=== PATIENT | female | born 1970 | race African-American/Black ===

== ENCOUNTER 2017-09-13 04:38 | Emergency (ER) | payer OTHER ==
[2017-09-13] MEDS ORDERED: MECLIZINE HCL 25 MG TABLET (FP) PO ONE (04:53)
[2017-09-13 04:55] VITALS: BP 119/84; PULSE 79; TEMP 99.3; BMI 25.9
--- NOTE | 2017-09-13 04:56 | PDOC ---
History of Present Illness - General Chief Complaint: Lightheaded Stated Complaint: WOKE UP WITH DIZZYNESS - History of Present Illness Initial Comments: 09/13/17 05:10 dizziness x several hours Timing/Duration: 1-3 hours Severity: moderate Modifying Factors: improves with: movement, rest Associated Symptoms: denies: fever/chills, headaches Past History - Past Medical History Allergies/Adverse Reactions: Allergies Allergy/AdvReac Type Severity Reaction Status Date / Time gluten Allergy Intermediate Verified 09/13/17 04:40 Home Medications: Ambulatory Orders Omeprazole 40 mg PO DAILY 08/21/17 Meclizine HCl [Antivert -] 25 mg PO TID PRN #14 tablet 09/13/17 Comment:: 09/13/17 05:11 denies pmh Review of Systems - Review of Systems All Other Systems: Reviewed and Negative *Physical Exam - Physical Exam General Appearance: Yes: Nourished, Appropriately Dressed HEENT: positive: EOMI, RO, Normal ENT Inspection. negative: TM Bulging, TM Dull, Lesions Neck: negative: Lymphadenopathy (R), Lymphadenopathy (L) Respiratory/Chest: positive: Lungs Clear Cardiovascular: positive: Regular Rhythm Musculoskeletal: positive: Normal Inspection Extremity: positive: Normal Capillary Refill Neurologic: positive: mgmt specialist II-XII NML intact, Fully Oriented, Normal Response, Motor Strength 5/5, Other (nl gait). negative: Abnormal Cranial NS, Facial Droop, Sensory Deficit Medical Decision Making - Medical Decision Making 09/13/17 05:12 vertigo c/w neuronitis meclizine neurology fu *DC/Admit/Observation/Transfer Diagnosis at time of Disposition: Vertigo - Discharge Dispostion Disposition: HOME Condition at time of disposition: Good - Prescriptions Prescriptions: Meclizine HCl [Antivert -] 25 mg PO TID PRN #14 tablet PRN Reason: dizziness - Referrals Referrals: Sulaiman Mccord MD [Staff Physician] - Bertin Jung MD [Staff Physician] - - Patient Instructions Printed Discharge Instructions: DI for Vertigo - Post Discharge Activity
== END 2017-09-13 05:18 | disposition home or self-care (01) ==
LOC: FER 04:38
DX: R42 Dizziness and giddiness (principal)
CPT/HCPCS: 99282-25

== ENCOUNTER 2022-07-15 14:25 | Emergency (ER) | payer OTHER ==
[2022-07-15] MEDS ORDERED: DIPHTH,PERTUSS(ACELL),TET 0.5 ML DISP.SYRIN IM ONE ×2 (14:34→14:51)
[2022-07-15] MEDS ORDERED: AMOX TR/POT CLAV 875MG/125MG TABLETS (FP) PO ONE (14:34)
[2022-07-15 14:50] VITALS: BP 148/80; PULSE 77; RESP 20; TEMP 98.4; BMI 27.0
[2022-07-15] MEDS ORDERED: AMOX TR/POT CLAV 875MG/125MG TABLETS (FP) ONE (14:51)
== END 2022-07-15 15:04 | disposition home or self-care (01) ==
LOC: FER 14:25
PROC: 3E0234Z Introduction of Serum, Toxoid and Vaccine into Muscle, Percutaneous Approach (ICD-10-PCS; principal; 2022-07-15)
DX: S81.801A Unspecified open wound, right lower leg, initial encounter (principal); W54.0XXA Bitten by dog, initial encounter
CPT/HCPCS: 90471; 90715; 99284-25

== ENCOUNTER 2024-02-13 09:50 | Emergency (ER) | payer OTHER ==
[2024-02-13 10:00] VITALS: BP 139/91; PULSE 86; RESP 18; TEMP 98.6; BMI 28.3
[2024-02-13] MEDS ORDERED: METOCLOPRAMIDE HCL INJECTION 10 MG/2 ML VIAL IVPB ONE (10:21)
[2024-02-13] MEDS ORDERED: METOCLOPRAMIDE HCL INJECTION 10 MG/2 ML VIAL ONE (10:28)
[2024-02-13 11:07] LABS: HEMATOCRIT 37.7 % (32.4-45.2); HEMOGLOBIN 12.2 G/dL (10.7-15.3); MCH 26.2 pg (25.7-33.7); MCHC 32.4 g/dl (32.0-36.0); MEAN CELL VOLUME 80.8 fl (80-96); MEAN PLT VOLUME 8.9 fl (7.5-11.1); PLATELET COUNT 269.9 10^3/uL (134-434); RBC 4.66 10^6/uL (3.60-5.2); RDW 14.8 % (11.6-15.6); WHITE BLOOD COUNT 7.2 10^3/uL (4.0-10.8)
[2024-02-13 11:15] LABS: ALBUMIN 4.3 g/dl (3.4-5.0); BILIRUBIN,TOTAL 0.3 mg/dl (0.2-1); CALCIUM 9.2 mg/dl (8.5-10.1); CREATININE 0.7 mg/dl (0.6-1.3); MAGNESIUM 2.1 mg/dL (1.8-2.4); POTASSIUM 4.3 mmol/L (3.5-5.1); TOT PROT 7.6 g/dl (6.4-8.2)
[2024-02-13 11:21] LABS: PLATELET ESTIMATE ADEQUATE
== END 2024-02-13 13:00 | disposition home or self-care (01) ==
LOC: FER 09:50
DX: E86.0 Dehydration (principal); R42 Dizziness and giddiness
CPT/HCPCS: 36415; 80053; 83036; 83735; 84439; 84443; 85025; 93005; 99284-25